=== PATIENT | female | born 1955 | race Caucasian/White ===

== ENCOUNTER 2022-09-23 14:33 | Inpatient (IN) | payer MEDICARE, MEDICAID ==
[~2022-09-23] VITALS: Ht 152.4 cm; Wt 67.6 kg
[2022-09-23] MEDS ORDERED: CEFTRIAXONE 2GM/50ML (ADDEASE) 50 ML IV ONE (14:45)
[2022-09-23] MEDS ORDERED: CEFTRIAXONE 2 G in DEXTROSE 5% WATER 50 ML IV ONE (15:00)
[2022-09-23 16:52] LABS: CHLORIDE 102 mEq/L (98-107)
[2022-09-23 16:59] LABS: BASOPHILS % 0.4 % (0.0-2.0); EOSINOPHILS % 0.6 % (0.0-5.0); HEMATOCRIT. 38.3 % (36.0-48.0); INR 1.3; LYMPHOCYTES % 13.1 % (20.0-50.0); MEAN CORPUSCULAR HEMOGLOBIN 35.8 pg (28.0-32.0); MEAN CORPUSCULAR VOLUME 105.4 fL (81.0-99.0); MEAN PLATELET VOLUME 9.7 fl (7.4-10.4); NEUTROPHILS % 75.9 % (40.0-76.0); PARTIAL THROMBOPLASTIN TIME 28.4 sec (23.4-31.0); PLATELET 90 x1000/uL (130-400); PROTHROMBIN TIME 13.5 sec (9.6-11.0); RED BLOOD CELL COUNT 3.63 mill/uL (4.2-5.4); RED CELL DISTRIBUTION WIDTH 14.6 % (11.6-14.6)
[2022-09-23 17:08] LABS: ETHANOL BLOOD < 10 mg/dL (-10)
[2022-09-23] MEDS ORDERED: LACTULOSE 20G/30ML UDC PO ONE (17:30)
[2022-09-23] MEDS ORDERED: LACTULOSE ENEMA 1,000ML BOTTLE PR STA (17:34)
[2022-09-23 17:40] LABS: CLARITY URINE CLEAR (CLEAR); COLOR URINE YELLOW (YELLOW); KETONES URINE NEGATIVE (NEGATIVE); LEUKOCYTE ESTERASE URINE NEGATIVE (NEGATIVE); NITRITE URINE NEGATIVE (NEGATIVE); OCCULT BLOOD URINE NEGATIVE (NEGATIVE); PH URINE >=9.0 (4.5-8.0); PROTEIN URINE NEGATIVE (NEGATIVE); SPECIFIC GRAVITY URINE 1.014 (1.005-1.030)
[2022-09-23 17:50] LABS: *AMPHETAMINES SCREEN URINE NEGATIVE (NEGATIVE); *BARBITURATES SCREEN URINE NEGATIVE (NEGATIVE); *BENZODIAZEPINES SCREEN URINE NEGATIVE (NEGATIVE); *COCAINE SCREEN URINE NEGATIVE (NEGATIVE); CANNABINOID URINE SCREEN NEGATIVE (NEGATIVE); METHADONE URINE SCREEN NEGATIVE (NEGATIVE); OPIATES URINE SCREEN NEGATIVE (NEGATIVE); PHENCYCLIDINE URINE SCREEN NEGATIVE (NEGATIVE)
[2022-09-23] MEDS ORDERED: LACTULOSE 300 ML in WATER FOR IRRIGATION,STERILE 700 ML PR NR (18:00)
[2022-09-23] MEDS ORDERED: ACETAMINOPHEN 325MG TABLET PO PRN (19:45)
[2022-09-23] MEDS ORDERED: IPRATROPIUM/ALBUTEROL 0.5-3(2.5)MG/3ML NEB HHN PRN (19:45)
[2022-09-23] MEDS ORDERED: MAGNESIUM/ALUMINUM HYDROXIDE/SIMETHICONE 30ML UDC PO PRN (19:45)
[2022-09-23] MEDS ORDERED: DIPHENHYDRAMINE 50MG/ML VIAL IV PRN (19:45)
[2022-09-23] MEDS ORDERED: GUAIFENESIN 200MG/10ML SUGAR FREE UDC PO PRN (19:45)
[2022-09-23] MEDS ORDERED: ONDANSETRON HCL 4MG/2ML INJ IV PRN (19:45)
[2022-09-23] MEDS ORDERED: DOCUSATE SODIUM 100MG CAPSULE PO PRN (19:45)
[2022-09-23] MEDS ORDERED: CLONIDINE 0.1MG TABLET PO PRN (19:45)
[2022-09-23] MEDS ORDERED: TRAMADOL 50MG TABLET PO PRN (19:45)
[2022-09-23] MEDS ORDERED: NALOXONE HCL 0.4MG/ML VIAL IV PRN (20:00)
[2022-09-23 21:30] VITALS: BP 112/63; PULSE 77; RESP 20; TEMP 97.9
[2022-09-23 22:00] VITALS: BP 121/63; PULSE 77; RESP 20; TEMP 97.9
[2022-09-23] MEDS: LACTULOSE 20G/30ML UDC PO SCH (23:17)
[2022-09-24] VITALS: BP 122/53; PULSE 78; RESP 18; TEMP 98
[2022-09-24 04:00] VITALS: BP 136/62; PULSE 78; RESP 18; TEMP 98.4
[2022-09-24 05:54] LABS: BASOPHILS % 0.5 % (0.0-2.0); EOSINOPHILS % 1.1 % (0.0-5.0); HEMOGLOBIN. 12.6 g/dL (12.0-16.0); LYMPHOCYTES % 18.7 % (20.0-50.0); MEAN CORPUSCULAR HEMOGLOBIN 35.8 pg (28.0-32.0); MEAN CORPUSCULAR VOLUME 105.7 fL (81.0-99.0); MEAN PLATELET VOLUME 9.7 fl (7.4-10.4); MONOCYTES % 11.3 % (2.0-8.0); NEUTROPHILS % 68.4 % (40.0-76.0); PLATELET 77 x1000/uL (130-400); RED CELL DISTRIBUTION WIDTH 15.1 % (11.6-14.6)
[2022-09-24 06:02] LABS: CHLORIDE 106 mEq/L (98-107)
[2022-09-24 06:13] LABS: HDL CHOLESTEROL 63 mg/dL (40-59); LDL CHOLESTEROL 37 mg/dL (5-100); T4 FREE 1.57 ng/dL (0.76-1.46)
[2022-09-24] MEDS: LACTULOSE 20G/30ML UDC PO SCH ×3 (06:30→22:11)
[2022-09-24 08:00] VITALS: BP 131/60; PULSE 80; RESP 18; TEMP 96.8
[2022-09-24] MEDS: HYDROCODONE/ACETAMINOPHEN 5/325MG TABLET PO PRN ×2 (11:00→14:54)
[2022-09-24 12:00] VITALS: BP 143/64; PULSE 69; RESP 18; TEMP 97.9
[2022-09-24 16:00] VITALS: BP 138/56; PULSE 60; RESP 18; TEMP 96.6
[2022-09-24 20:00] VITALS: BP 117/52; PULSE 62; RESP 18; TEMP 98.1
[2022-09-24] MEDS ORDERED: URSO500T7 MT (22:47)
[2022-09-24] MEDS ORDERED: LACT10SO81 MT (22:47)
[2022-09-24] MEDS ORDERED: FURO40TA5 PO (22:47)
[2022-09-24] MEDS ORDERED: EMPA10TA MT (22:47)
[2022-09-24] MEDS ORDERED: LEVO88TA7 MT (22:47)
[2022-09-24] MEDS ORDERED: INSU100I28 SQ (22:47)
[2022-09-24] MEDS ORDERED: RIFA550T MT (22:47)
[2022-09-24] MEDS ORDERED: PANT40TA51 PO (22:47)
[2022-09-24] MEDS ORDERED: CHOL5POW MT (22:47)
[2022-09-24] MEDS ORDERED: TOPUD MT (22:47)
[2022-09-24] MEDS ORDERED: CALC-26 PO (22:47)
[2022-09-24] MEDS ORDERED: MAGN400C MT (22:47)
[2022-09-24] MEDS ORDERED: GABA-529 PO (22:47)
[2022-09-25] VITALS: BP_SYST 117; BP_DIAS 51; BP_DIAS 57; PULSE 64; RESP 17; TEMP 98.7
[2022-09-25 04:00] VITALS: BP 155/89; PULSE 84; RESP 19; TEMP 97.3
[2022-09-25] MEDS: LACTULOSE 20G/30ML UDC PO SCH ×2 (05:27→13:33)
[2022-09-25 07:59] VITALS: BP 130/55; PULSE 68; RESP 20; TEMP 98.6
[2022-09-25 11:40] VITALS: BP 116/47; PULSE 78; RESP 20; TEMP 98.7
[2022-09-25 11:58] VITALS: BP 130/55; PULSE 85; TEMP 98.6; O2SAT 96
== END 2022-09-25 14:51 | disposition home or self-care (01) | DRG 441 ==
LOC: ER 14:33 → 7WST 18:30 → EDBEDREQTM 18:34 → EDBEDREQ 18:34
PROVIDERS: ADMIT Hospitalist; ATTEND Hospitalist
DX: K76.82 Hepatic encephalopathy (principal); E43 Unspecified severe protein-calorie malnutrition; E87.1 Hypo-osmolality and hyponatremia; E87.20 Acidosis, unspecified; Z68.29 Body mass index [BMI] 29.0-29.9, adult; E03.9 Hypothyroidism, unspecified; E86.0 Dehydration; R73.9 Hyperglycemia, unspecified; D69.59 Other secondary thrombocytopenia; I50.9 Heart failure, unspecified; D69.6 Thrombocytopenia, unspecified
CPT/HCPCS: 36415; 71045; 80053; 80061; 80305; 80307; 80320; 80329; 81003; 82140; 83605; 83880; 84439; 84443; 84484; 85025; 86850; 86900; 93005; 93970; 97162; 99291; J0696; J7060; G0480